=== PATIENT | female | born 1990 | race American Indian/Alaskan Native ===

== ENCOUNTER 2016-09-06 04:52 | Inpatient (IN) | payer MEDICAID ==
[2016-09-06] MEDS ORDERED: LACTATED RINGERS 1,000 ML ONE (05:55)
[2016-09-06] MEDS ORDERED: POLYCILLIN/NS 2 GM/100 ML 100 ML IV ONE ×2 (05:55→06:03)
[2016-09-06] MEDS ORDERED: MINERAL OIL PO PRN (06:03)
[2016-09-06] MEDS ORDERED: ePHEDrine SULFATE IV PRN ×2 (06:03→07:48)
[2016-09-06] MEDS ORDERED: SUBLIMAZE IV PRN (06:03)
[2016-09-06] MEDS ORDERED: ZOFRAN IV PRN (06:03)
[2016-09-06] MEDS ORDERED: XYLOCAINE 2% INFILTRATI ONE (06:03)
[2016-09-06] MEDS ORDERED: BRETHINE SUB-Q PRN (06:03)
--- NOTE | 2016-09-06 06:07 | History and Physical Report ---
History of Present Illness Date of examination: 09/06/16 (pt presents to triage in labor) Chief complaint: contractions History of present illness: EDC Confirmation: 09/25/2016 Gestational Age: 26 weeks Past History : 2 Term Births: 1 Living Children: 1 Para: 1 # 1 Delivery date: 08/2015 Weeks Gestation: term Delivery type: Anesthesia type: epidural Delivery location: [facility] [place] Infant Sex: Female weight: 6-11 Comments: denies Past Medical History: Negative Past Medical History Past Surgical History: Negative Past Surgical History Past Medical History Surgery (Non-automatic i threading machine feeder): Negative Past Surgical History Abnormal PAP: negative ARMOND Exposure: negative Infertility: negative Uterine Anomaly: negative Uterine Surgery (not C/S): negative Other Gynecologic Problems: negative Infection History Hx of STD: chlamydia HIV Risk Eval: low risk Hepatitis B Risk Eval: low risk Personal hx. of genital herpes: no Partner hx. of genital herpes: no Rash, Viral, or Febrile illness since last LMP? no Varicella/Chicken Pox Status: Previous Disease Infection History Comments: scabies Genetic History Congenital Heart Defect: Mom: no Dad: no Gina Disease: Mom: no Dad: no Thalassemia Mom: no Dad: no Neural Tube Defect Mom: no Dad: no Down's Syndrome Mom: no Dad: no Rhett-Sachs Mom: no Dad: no Sickle Cell Disease/Trait Mom: no Dad: no Hemophilia Mom: no Dad: no Muscular Dystrophy Mom: no Dad: no Cystic Fibrosis Mom: no Dad: no Minerva Chorea Mom: no Dad: no Mental Retardation Mom: no Dad: no Fragile X Mom: no Dad: no Other Genetic/Chromosomal Disorder Mom: no Dad: no Child w/other defect Mom: no Dad: no Enviromental Exposures Xray Exposure: no Medication, drug, or alcohol use since LMP: no Chemical/Other Exposure: no Exposure to Cat Liter: no Hx of Parvovirus (Fifth Disease): no Occupational Exposure to Children: none Current Allergies: No known allergies Laboratory Results Date/Time Collected: 06/19/2016 Routine Urinalysis Leukocytes: negative Nitrite: negative Urobilinogen: negative Protein: Negative Blood: negative Ketone: negative Bilirubin: negative Glucose: Negative Urine HCG: positive Review of Systems General Denies fever, chills, sweats, anorexia, fatigue, weakness, malaise, weight loss and sleep disorder. Denies nausea, vomiting, headache, swelling of legs, abdominal pain, vaginal discharge, vaginal bleeding and contractions. Denies vaginal discharge, incontinence, dysuria, hematuria, urinary frequency, amenorrhea, menorrhagia, abnormal vaginal bleeding, pelvic pain, genital sores, decreased libido, painful periods, painful sex, urinary urgency, hot flashes, vaginal dryness, vaginal itching and vaginal odor. CV Denies chest pains, palpitations, syncope, dyspnea on exertion, orthopnea, PND and peripheral edema. Resp Denies cough, dyspnea at rest, excessive sputum, hemoptysis, wheezing and pleurisy. GI Denies nausea, vomiting, diarrhea, constipation, change in bowel habits, abdominal pain, melena, hematochezia, jaundice, gas/bloating, indigestion/ heartburn, dysphagia and odynophagia. Endo Denies cold intolerance, heat intolerance, polydipsia, polyphagia, polyuria and unusual weight change. Breast Denies left breast lump, right breast lump, nipple discharge, bloody discharge from nipple, breast pain, abnormal mammogram and breast enlargement. MS Denies back pain, joint pain, joint swelling, muscle cramps, muscle weakness, stiffness, arthritis, sciatica, restless legs, leg pain at night and leg pain with exertion. Derm Denies rash, itching, dryness and suspicious lesions. Neuro Denies paralysis, paresthesias, headache, seizures, tremors, vertigo, transient blindness, frequent falls, frequent headaches and difficulty walking. Psych Denies depression, anxiety, irritability and mood swings. Eyes Denies blurring, diplopia, irritation, discharge, vision loss, eye pain and photophobia. ENT Denies earache, ear discharge, tinnitus, decreased hearing, nasal congestion, nosebleeds, sore throat and hoarseness. Allergy Denies urticaria, allergic rash, hay fever and recurrent infections. Heme Denies abnormal bruising, bleeding and enlarged lymph nodes. PHYSICAL EXAM HEENT: PERRLA, normal conjunctiva, external nose and nasal mucosa normal, oropharynx clear Neck/Thyroid: supple, thyroid normal Skin no significant abnormal lesions or rashes Chest: respiratory effort normal, clear to auscultation Breasts: normal without skin changes or masses CV: regular, normal S1-S2, no murmur, no rub, no gallop Abdomen: normal bowel sounds, soft, nontender, no HSM Musculoskeletal: grossly normal ROM in joints, no joint tenderness or muscle weakness Neuro: grossly normal DTRs, sensation, strength, cranial nerves Extremities: no clubbing, cyanosis, or edema REGULATORY AUDITOR Exams Vulva/Vagina: No lesions, normal BUS, normal rugae Cervix: No lesions; no cervical motion tenderness Uterus: normal size and position, midline, mobile Fundal Ht: 26 size: AGA Presentation: vertex FHT: 140s Adnexae: no masses or tenderness Rectovaginal: no masses or tenderness Past History - Obstetrical History Expected Date of Delivery: 09/25/16 Actual Gestation: 37 Week(s) 2 Day(s) : 2 Para: 1 Hx # Term Pregnancies: 1 Number of Living Children: 1 Medications and Allergies Allergies Allergy/AdvReac Type Severity Reaction Status Date / Time No Known Allergies Allergy Verified 12/28/15 07:37 Home Medications Medication Instructions Recorded Confirmed Last Taken Type No Known Home Medications [No 12/28/15 12/28/15 Unknown History Reported Home Medications] - Vital Signs Vital signs: Vital Signs Pulse Pulse Ox 99 H 98 09/06/16 05:26 09/06/16 05:26 Temp Pulse Resp BP Pulse Ox 98.2 F 106 H 18 96/46 97 09/06/16 05:47 09/06/16 05:45 09/06/16 05:47 09/06/16 05:45 09/06/16 05:36 - Physical Exam Breasts: Positive: deferred Cardiovascular: Regular rate Lungs: Positive: Normal air movement Abdomen: Positive: normal appearance, soft Genitourinary (Female): Positive: normal external genitalia Vulva: both: normal Vagina: Positive: normal moisture Uterus: Positive: normal size Extremities: Positive: edema Deep Tendon Reflex Grade: Normal +2 - Obstetrical FHR: category 1 Uterine Contraction Monitor Mode: External Cervical Dilatation: 5 Cervical Effacement Percentage: 70 station: -1/0 Uterine Contraction Pattern: Regular Uterine Contraction Intensity: Moderate Results All other labs normal. Laboratory Data-Patient Name: TOVA UGARTE Test Date Result Blood Type 07/13/2016 A Rh 07/13/2016 Positive Antibody Screen negative Rubella 07/13/2016 Serology (RPR) 07/13/2016 HBsAg 07/13/2016 Negative Hemoglobin 07/13/2016 12.1 Hematocrit 07/13/2016 38.6 Platelets 07/13/2016 219 [id number] Chlamydia DNA 06/19/2016 Negative GC DNA/Culture 06/19/2016 Urine Culture 07/25/2016 Final report Group B Strep cult unknown PAP HIV 07/17/2016 negative AFP/Quad Screen Glucola Test 3hr GTT (Fasting) 1 hr 2 hr 3 hr OPTIONAL LABS-Patient Name:TOVA UGARTE Test Date Result Varicella Ab Sickle Cell 07/13/2016 Negative PPD Fibronectin Cystic Fibrosis Parvovirus TSH Free T4 Hepatitis C ALT AST Uric Acid Creatinine 24 hr Urine Protein MERLYN Assessment and Plan - Patient Problems (1) 37 weeks gestation of Current Visit: Yes Status: Acute Plan to address problem: active labor (2) Active labor Current Visit: Yes Status: Acute Plan to address problem: anticipate delivery SVE 5,70,-1 (3) Insufficient care in third trimester Current Visit: Yes Status: Acute Plan to address problem: Pt presents this AM in active labor Ctx started yesterday. Pt is 26yo EDC Close conception First child had her first birthday [birth year]. Pt transferred care to us in July, limited records were obtained from previous practice, Pt had only 3 visits with our practice. GBS unknown Ampicillin per protocol ordered Orders in EMR Anticipate delivery
[2016-09-06 06:27] LABS: Hematocrit 38.3 % (30.3-42.9); Hemoglobin 12.1 gm/dl (10.1-14.3); Mean Corpuscular HGB Conc 32 % (30-34); Mean Corpuscular Hemoglobin 26 pg (28-32); Mean Corpuscular Volume 82 fl (79-97); Platelet Count 195 K/mm3 (140-440); Red Blood Count 4.64 M/mm3 (3.65-5.03); White Blood Count 9.7 K/mm3 (4.5-11.0)
[2016-09-06 06:57] LABS: Urine Drugs of Abuse Note Disclamer
[2016-09-06] MEDS ORDERED: PITOCin/NS 20 UNIT/1000ML DRIP 1,000 ML IV SCH (07:00)
[2016-09-06] MEDS ORDERED: LACTATED RINGERS 1,000 ML IV SCH (07:00)
[2016-09-06] MEDS ORDERED: PITOCin/NS 30 UNIT/500ML 500 ML IV SCH (07:00)
[2016-09-06] MEDS ORDERED: ePHEDrine SULFATE ONE (07:18)
[2016-09-06] MEDS ORDERED: NARCAN 2 MG/2 ML IV PRN (07:48)
--- NOTE | 2016-09-06 07:48 | Anesthesia Consultation ---
Anesthesia Consult and Med Hx Date of service: 09/06/16 - Airway Anesthetic Teeth Evaluation: Good ROM Head & Neck: Adequate Mental/Hyoid Distance: Adequate Mallampati Class: Class II Intubation Access Assessment: Probably Good - Pre-Operative Health Status ASA Pre-Surgery Classification: ASA2 Proposed Anesthetic Plan: Epidural, Spinal - Pulmonary Hx Asthma: No COPD: No Hx Pneumonia: No - Cardiovascular System Hx Hypertension: No - Central Nervous System Hx Seizures: No Hx Psychiatric Problems: No - Endocrine Hx Renal Disease: No Hx End Stage Renal Disease: No Hx Hypothyroidism: No Hx Hyperthyroidism: No - Hematic Hx Anemia: No Hx Sickle Cell Disease: No - Other Systems Hx Alcohol Use: No Hx Obesity: Yes (BMI 38.4)
--- NOTE | 2016-09-06 07:59 | Progress Note ---
Assessment and Plan - Patient Problems (1) 37 weeks gestation of Current Visit: Yes Status: Acute (2) Active labor Current Visit: Yes Status: Acute Plan to address problem: anticipate delivery (3) Insufficient care in third trimester Current Visit: Yes Status: Acute Subjective - Subjective Date of service: 09/06/16 (comfortable with epidural) Interval history: EDC Confirmation: 09/25/2016 Gestational Age: 26 weeks Past History : 2 Term Births: 1 Living Children: 1 Para: 1 # 1 Delivery date: 08/2015 Weeks Gestation: term Delivery type: Anesthesia type: epidural Delivery [place] [facility] [place] Sex: Female weight: 6-11 Comments: denies Past Medical History: Negative Past Medical History Past Surgical History: Negative Past Surgical History Past Medical History Surgery (Non-vamp marker): Negative Past Surgical History Abnormal PAP: negative ARMOND Exposure: negative Infertility: negative Uterine Anomaly: negative Uterine Surgery (not C/S): negative Other Gynecologic Problems: negative Infection History Hx of STD: chlamydia HIV Risk Eval: low risk Hepatitis B Risk Eval: low risk Personal hx. of genital herpes: no Partner hx. of genital herpes: no Rash, Viral, or Febrile illness since last LMP? no Varicella/Chicken Pox Status: Previous Disease Infection History Comments: scabies Genetic History Congenital Heart Defect: Mom: no Dad: no Gina Disease: Mom: no Dad: no Thalassemia Mom: no Dad: no Neural Tube Defect Mom: no Dad: no Down's Syndrome Mom: no Dad: no Rhett-Sachs Mom: no Dad: no Sickle Cell Disease/Trait Mom: no Dad: no Hemophilia Mom: no Dad: no Muscular Dystrophy Mom: no Dad: no Cystic Fibrosis Mom: no Dad: no Minerva Chorea Mom: no Dad: no Mental Retardation Mom: no Dad: no Fragile X Mom: no Dad: no Other Genetic/Chromosomal Disorder Mom: no Dad: no Child w/other defect Mom: no Dad: no Enviromental Exposures Xray Exposure: no Medication, drug, or alcohol use since LMP: no Chemical/Other Exposure: no Exposure to Cat Liter: no Hx of Parvovirus (Fifth Disease): no Occupational Exposure to Children: none Current Allergies: No known allergies Laboratory Results Date/Time Collected: 06/19/2016 Routine Urinalysis Leukocytes: negative Nitrite: negative Urobilinogen: negative Protein: Negative Blood: negative Ketone: negative Bilirubin: negative Glucose: Negative Urine HCG: positive Review of Systems General Denies fever, chills, sweats, anorexia, fatigue, weakness, malaise, weight loss and sleep disorder. Denies nausea, vomiting, headache, swelling of legs, abdominal pain, vaginal discharge, vaginal bleeding and contractions. Denies vaginal discharge, incontinence, dysuria, hematuria, urinary frequency, amenorrhea, menorrhagia, abnormal vaginal bleeding, pelvic pain, genital sores, decreased libido, painful periods, painful sex, urinary urgency, hot flashes, vaginal dryness, vaginal itching and vaginal odor. CV Denies chest pains, palpitations, syncope, dyspnea on exertion, orthopnea, PND and peripheral edema. Resp Denies cough, dyspnea at rest, excessive sputum, hemoptysis, wheezing and pleurisy. GI Denies nausea, vomiting, diarrhea, constipation, change in bowel habits, abdominal pain, melena, hematochezia, jaundice, gas/bloating, indigestion/ heartburn, dysphagia and odynophagia. Endo Denies cold intolerance, heat intolerance, polydipsia, polyphagia, polyuria and unusual weight change. Breast Denies left breast lump, right breast lump, nipple discharge, bloody discharge from nipple, breast pain, abnormal mammogram and breast enlargement. MS Denies back pain, joint pain, joint swelling, muscle cramps, muscle weakness, stiffness, arthritis, sciatica, restless legs, leg pain at night and leg pain with exertion. Derm Denies rash, itching, dryness and suspicious lesions. Neuro Denies paralysis, paresthesias, headache, seizures, tremors, vertigo, transient blindness, frequent falls, frequent headaches and difficulty walking. Psych Denies depression, anxiety, irritability and mood swings. Eyes Denies blurring, diplopia, irritation, discharge, vision loss, eye pain and photophobia. ENT Denies earache, ear discharge, tinnitus, decreased hearing, nasal congestion, nosebleeds, sore throat and hoarseness. Allergy Denies urticaria, allergic rash, hay fever and recurrent infections. Heme Denies abnormal bruising, bleeding and enlarged lymph nodes. PHYSICAL EXAM HEENT: PERRLA, normal conjunctiva, external nose and nasal mucosa normal, oropharynx clear Neck/Thyroid: supple, thyroid normal Skin no significant abnormal lesions or rashes Chest: respiratory effort normal, clear to auscultation Breasts: normal without skin changes or masses CV: regular, normal S1-S2, no murmur, no rub, no gallop Abdomen: normal bowel sounds, soft, nontender, no HSM Musculoskeletal: grossly normal ROM in joints, no joint tenderness or muscle weakness Neuro: grossly normal DTRs, sensation, strength, cranial nerves Extremities: no clubbing, cyanosis, or edema INTEGRATIVE MEDICINE PHYSICIAN Exams Vulva/Vagina: No lesions, normal BUS, normal rugae Cervix: No lesions; no cervical motion tenderness Uterus: normal size and position, midline, mobile Fundal Ht: 26 size: AGA Presentation: vertex FHT: 140s Adnexae: no masses or tenderness Rectovaginal: no masses or tenderness Patient reports: loss of fluid (SROM clear fluid), movement normal Objective - Vital Signs Vital Signs: Vital Signs - 12hr 09/06/16 09/06/16 09/06/16 05:26 05:31 05:36 Temperature Pulse Rate 99 H 98 H 96 H Respiratory Rate Blood Pressure O2 Sat by Pulse 98 98 97 Oximetry 09/06/16 09/06/16 09/06/16 05:45 05:47 06:19 Temperature 98.2 F 97.8 F Pulse Rate 106 H Respiratory 18 20 Rate Blood Pressure 96/46 O2 Sat by Pulse Oximetry 09/06/16 09/06/16 09/06/16 06:44 07:09 07:14 Temperature Pulse Rate 92 H 92 H Respiratory 20 Rate Blood Pressure 105/61 O2 Sat by Pulse 97 97 Oximetry 09/06/16 09/06/16 09/06/16 07:19 07:23 07:24 Temperature Pulse Rate 91 H 96 H 92 H Respiratory Rate Blood Pressure 107/65 O2 Sat by Pulse 98 89 98 Oximetry 09/06/16 09/06/16 09/06/16 07:27 07:29 07:31 Temperature Pulse Rate 99 H 96 H 100 H Respiratory Rate Blood Pressure 117/74 104/66 109/65 O2 Sat by Pulse 99 Oximetry 09/06/16 09/06/16 09/06/16 07:33 07:34 07:39 Temperature Pulse Rate 94 H 94 H 96 H Respiratory Rate Blood Pressure 110/70 110/71 O2 Sat by Pulse 93 97 97 Oximetry 09/06/16 09/06/16 09/06/16 07:41 07:43 07:44 Temperature Pulse Rate 110 H 93 H 99 H Respiratory Rate Blood Pressure 111/86 112/63 O2 Sat by Pulse 98 Oximetry 09/06/16 09/06/16 09/06/16 07:45 07:47 07:49 Temperature Pulse Rate 96 H 98 H 101 H Respiratory Rate Blood Pressure 112/64 116/65 92/61 O2 Sat by Pulse 99 Oximetry 09/06/16 09/06/16 09/06/16 07:51 07:53 07:54 Temperature Pulse Rate 86 91 H 87 Respiratory Rate Blood Pressure 115/62 107/56 O2 Sat by Pulse 98 Oximetry 09/06/16 07:55 Temperature Pulse Rate 89 Respiratory Rate Blood Pressure 109/62 O2 Sat by Pulse Oximetry - Exam Breasts: deferred Cardiovascular: Regular rate Lungs: Normal air movement Abdomen: Present: normal appearance, soft. Absent: distention, tenderness Uterus: Present: normal FHR: auscultation normal, category 1 Uterine Contraction Monitor Mode: Internal Cervical Dilatation: 7 (SROM clear) Cervical Effacement Percentage: 100 (ISE/IUPC) Uterine Contraction Frequency (min): 0 Uterine Contraction Pattern: Regular Uterine Tone Measurement Phase: Resting Uterine Contraction Intensity: Moderate Extremities: normal Deep Tendon Reflex Grade: Normal +2 - Labs Labs: Abnormal Labs 09/06/16 06:15 MCH 26 L Laboratory Results - last 24 hr 09/06/16 09/06/16 09/06/16 06:15 06:15 06:55 WBC 9.7 RBC 4.64 Hgb 12.1 Hct 38.3 MCV 82 MCH 26 L MCHC 32 RDW 14.0 Plt Count 195 Urine Opiates Screen Presumptive negative Urine Methadone Screen Presumptive negative Ur Barbiturates Screen Presumptive negative Ur Phencyclidine Scrn Presumptive negative Ur Amphetamines Screen Presumptive negative U Benzodiazepines Scrn Presumptive negative Urine Cocaine Screen Presumptive negative U Marijuana (THC) Screen Presumptive negative Drugs of Abuse Note Disclamer Blood Type A POSITIVE
[2016-09-06] MEDS ORDERED: fentaNYL-BUPIV 2 MCG/ML-0.125% 100 ML EPIDURAL SCH (08:00)
[2016-09-06] MEDS ORDERED: XYLOCAINE MPF 2% ONE ×2 (08:21→08:51)
--- NOTE | 2016-09-06 08:44 | Procedure Note ---
OB Delivery Note - Delivery Date of Delivery: 09/06/16 [place] Operator: OTDD GAVIRIA Estimated blood loss: 300cc - Vaginal Delivery presentation: vertex Delivery position: OA Intrapartum events: none Delivery induction: none Delivery augmentation: pitocin Delivery monitor: internal FHT, internal uterine Route of delivery: Delivery placenta: spontaneous Delivery cord: 3 umbilical vessels Episiotomy: none Delivery laceration: 1st degree (no repair) Anesthesia: epidural Delivery comments: live born female over intact perineum Baby floppy not responding to stimulation NICU called to room. Placenta and membrane del complete and intact, several areas of calcification noted. Placenta to pathology Small 1st degree lac on perineum No repair 8/9, EBL 300, Wgt 7-6. Pit IVFs Mom and baby remain LDR stable - A at 1 minute: 8 at 5 minutes: 9 Infant Gender: Female (7-6)
[2016-09-06] MEDS ORDERED: ZOFRAN ONE (08:51)
[2016-09-06] MEDS ORDERED: TUCKS PAD TP PRN (09:00)
[2016-09-06] MEDS ORDERED: TYLENOL PO PRN ×2 (09:00)
[2016-09-06] MEDS ORDERED: BENADRYL PO PRN (09:00)
[2016-09-06] MEDS ORDERED: DERMOPLAST TP PRN (09:00)
[2016-09-06] MEDS ORDERED: SODIUM CHLORIDE FLUSH SYRINGE 10 ML IV PRN (09:00)
[2016-09-06] MEDS ORDERED: LANSINOH TP PRN (09:00)
[2016-09-06] MEDS ORDERED: PHENERGAN PO PRN (09:00)
[2016-09-06] MEDS ORDERED: DULCOLAX PR PRN (10:00)
[2016-09-06] MEDS ORDERED: POLYCILLIN/NS 1 GM/50 ML 50 ML IV SCH (10:00)
[2016-09-06] MEDS: NORCO 5/325 PO PRN ×2 (11:23→19:55)
[2016-09-06] MEDS: MOTRIN PO SCH ×3 (12:00→23:47)
[2016-09-06] MEDS ORDERED: MILK OF MAGNESIA PO PRN (22:00)
[2016-09-06] MEDS: COLACE PO SCH (23:47)
[2016-09-07 04:18] LABS: Hematocrit 36.1 % (30.3-42.9); Hemoglobin 11.5 gm/dl (10.1-14.3)
[2016-09-07] MEDS ORDERED: BOOSTRIX IM ONE (06:00)
[2016-09-07] MEDS: MOTRIN PO SCH ×4 (06:26→18:00)
[2016-09-07] MEDS: NORCO 5/325 PO PRN (06:32)
--- NOTE | 2016-09-07 08:08 | Progress Note ---
Assessment and Plan patient doing well, no complaints this morning. H&H 11.5/36.1, VSSAF, lochia scant. Patient plans for depo in hospital followed by IUD placement in office . Will put d/c order on chart, patient stable for discharge home. - Patient Problems (1) (normal spontaneous vaginal delivery) Current Visit: Yes Status: Acute Plan to address problem: f/u in office 4 weeks Subjective - Subjective Date of service: 09/07/16 Principal diagnosis: day #1 s/p Patient reports: appetite normal, voiding normally, pain well controlled, ambulating normally, no dizzy ambulation, no nauseated [place]: doing well, nursing well (breast and bottle feeding) Objective - Vital Signs Latest vital signs: Vital Signs Temp Pulse Pulse Resp BP BP Pulse Ox 09/07/16 04:00 98.1 F 82 20 104/69 09/06/16 23:20 97.9 F 59 L 20 109/60 09/06/16 11:05 98.0 F 76 20 108/60 09/06/16 10:14 93 H 99 09/06/16 10:12 88 88 09/06/16 10:09 101 H 97 09/06/16 10:07 88 108/59 09/06/16 10:04 94 H 97 09/06/16 09:59 94 H 97 09/06/16 09:54 91 H 98 09/06/16 09:53 92 H 115/56 09/06/16 09:49 92 H 100 09/06/16 09:44 100 H 98 09/06/16 09:39 98 H 100 09/06/16 09:38 100 H 110/57 09/06/16 09:34 103 H 100 09/06/16 09:29 94 H 99 09/06/16 09:24 97 H 100 09/06/16 09:19 100 H 99 09/06/16 09:14 101 H 98 09/06/16 09:09 99 H 98 09/06/16 09:08 103 H 103/59 09/06/16 09:04 106 H 98 09/06/16 08:59 109 H 98 09/06/16 08:54 107 H 97 09/06/16 08:52 109 H 111/55 09/06/16 08:49 112 H 97 09/06/16 08:44 114 H 98 09/06/16 08:38 118 H 118/59 09/06/16 08:27 123 H 129/67 09/06/16 08:25 94 H 127/62 09/06/16 08:23 94 H 118/61 09/06/16 08:20 104 H 93 09/06/16 08:19 99 H 98 09/06/16 08:14 100 H 100 09/06/16 08:12 31 L 88 09/06/16 08:09 99 H 99 09/06/16 08:04 98 H 99 09/06/16 08:03 91 H 113/56 09/06/16 08:01 97 H 114/61 Intake and Output 09/06/16 09/07/16 09/07/16 22:59 06:59 14:59 Intake Total 125 Output Total 500 500 Balance -375 -500 Intake: IV 125 PITOCin/NS 20 UNIT/1000ML 125 DRIP 1,000 ML @ 125 mls/ hr IV DIRECT MANJINDER Rx#: [id number] Output: Urine 500 500 Void 500 500 Other: Total, Output Amount 500 500 # Voids Void 2 - Exam Breasts: Present: normal Cardiovascular: Present: Regular rate Lungs: Present: Clear to auscultation, Normal air movement Abdomen: Present: normal appearance, soft, normal bowel sounds Vulva: both: laceration/episiotomy (small 1st degree) Uterus: Present: normal, firm, fundal height at umbilicus Extremities: Present: normal
--- NOTE | 2016-09-07 08:10 | Discharge Summary ---
Providers - Providers Date of Admission: 09/06/16 06:00 Date of discharge: 09/07/16 Attending physician: ML BEAL Primary care physician: ML BEAL Hospitalization Reason for admission: active labor Delivery: Episiotomy: none Laceration: 1st degree Other procedures: none complications: none Discharge diagnosis: IUP at term delivered [place] baby: female Hospital course: uncomplicated vaginal delivery and course Condition at discharge: Good Disposition: DISCHARGED TO HOME OR SELFCARE - Discharge Diagnoses (1) (normal spontaneous vaginal delivery) Status: Acute Plan - Provider Discharge Summary Activity: routine, no sex for 6 weeks, no heavy lifting 4 weeks, no strenuous exercise Diet: routine Instructions: routine Additional instructions: [] Smoking cessation referral if applicable(refer to patient education folder for contact #) [] Refer to [facility] Call your doctor immediately for: * Fever > 100.5 * Heavy vaginal bleeding ( >1 pad per hour) * Severe persistent headache * Shortness of breath * Reddened, hot, painful area to leg or breast * Drainage or odor from incision. * Keep incision clean and dry at all times and follow doctor's instructions regarding bathing/showering - Follow up plan Follow up: ML BEAL MD [Primary Care Provider] - 10/05/16 (Congratulations! Please call [phone] to schedule a visit in 4 weeks. Call for any questions or concerns. )
[2016-09-07] MEDS ORDERED: DEPO-PROVERA (CONTRACEPTION) IM NR (09:30)
[2016-09-07] MEDS ORDERED: M-M-R II VACCINE SUB-Q ONE (11:00)
--- NOTE | 2016-09-07 13:25 | Progress Note ---
Subjective Date of service: 09/07/16 Principal diagnosis: day #1 s/p Interval history: 1st day after normal spontaneous vaginal delivery Patient is in the bed, comfortable. Pain is well controlled with pain meds. Ambulated well. No residual neurological deficit. No anesthesia complications Objective - Constitutional Vitals: Vital Signs - 12hr 09/07/16 09/07/16 04:00 08:05 Temperature 98.1 F 97.9 F Pulse Rate [ 82 77 Left Radial] Respiratory 20 18 Rate Blood Pressure 104/69 85/40 [Left Arm] - Labs CBC & Chem 7: 09/07/16 Unknown
[2016-09-08] MEDS: MOTRIN PO SCH (00:19)
[2016-09-08] MEDS: NORCO 5/325 PO PRN (08:09)
[2016-09-08] MEDS: COLACE PO SCH ×2 (08:09→10:13)
[2016-09-08] MEDS ORDERED: DEPO-PROVERA (CONTRACEPTION) IM NR (10:00)
[2016-09-08 13:59] VITALS: BP 100/58
== END 2016-09-08 12:25 | disposition home or self-care (01) | DRG 775 ==
LOC: TRG 04:52 → LD 06:00 → TRG 06:00 → OB 11:11
PROVIDERS: ADMIT Obstetrics & Gynecology; ATTEND Obstetrics & Gynecology
PROC: 10E0XZZ Delivery of Products of Conception, External Approach (ICD-10-PCS; principal; 2016-09-06)
PROC: 3E0S3CZ (ICD-10-PCS; 2016-09-06)
PROC: 00HU33Z Insertion of Infusion Device into Spinal Canal, Percutaneous Approach (ICD-10-PCS; 2016-09-06)
DX: O99.214 Obesity complicating childbirth (principal); E66.9 Obesity, unspecified; O70.0 First degree perineal laceration during delivery; O09.33 Supervision of pregnancy with insufficient antenatal care, third trimester; Z37.0 Single live birth; Z3A.37 37 weeks gestation of pregnancy; Z68.38 Body mass index [BMI] 38.0-38.9, adult
CPT/HCPCS: 36415; 80307; 85014; 85018; 85027; 86592; 86850; 86900; 86901; 88307; 99211; A6250; G0463; J0290; J1050; J2405; J2590; J3010; J7120